=== PATIENT | male | born 1965 | race Caucasian/White ===

== ENCOUNTER 2020-06-17 06:47 | Emergency (ER) | payer SELFPAY ==
[~2020-06-17] VITALS: Ht 177.8 cm; Wt 127.0 kg
[2020-06-17] MEDS ORDERED: CLIN300 PO (07:04)
== END 2020-06-17 07:13 | disposition home or self-care (01) ==
LOC: ER 06:47
DX: K08.89 Other specified disorders of teeth and supporting structures (principal); Z88.0 Allergy status to penicillin; Z91.018 Allergy to other foods
CPT/HCPCS: 99282

== ENCOUNTER 2021-02-25 22:58 | Emergency (ER) | payer OTHER ==
[~2021-02-25] VITALS: Ht 177.8 cm; Wt 127.0 kg
[~2021-02-25 22:58] MED LIST: CLIN300 PO
[2021-02-26 01:09] LABS: BASOPHILS ABSOLUTE AUTO 0.05 K/mm3 (0.00-0.23); BASOPHILS PERCENT AUTO 0 % (0-2); EOSINOPHILS ABSOLUTE AUTO 0.23 K/mm3 (0.00-0.68); EOSINOPHILS PERCENT AUTO 2 % (0-6); Hematocrit 47.4 % (37.0-53.0); Hemoglobin 16.2 g/dL (13.5-17.5); IMMATURE GRAN ABSOLUTE AUTO 0.13 K/mm3 (0.00-0.10); IMMATURE GRAN PERCENT AUTO 1 % (0-1); LYMPHOCYTES ABSOLUTE AUTO 2.24 K/mm3 (0.84-5.20); LYMPHOCYTES PERCENT AUTO 17 % (21-46); MONOCYTES ABSOLUTE AUTO 1.08 K/mm3 (0.16-1.47); MONOCYTES PERCENT AUTO 8 % (4-13); Mean Corpuscular HGB 29.4 pg (26.0-34.0); Mean Corpuscular HGB Conc 34.2 g/dL (31.5-36.5); Mean Corpuscular Volume 86 fL (80-100); Mean Platelet Volume 9.6 fL (9.1-12.4); NEUTROPHILS PERCENT AUTO 72 % (41-73); Platelet Count 233 K/mm3 (150-400); RDW Coefficient Variation 13.2 % (11.7-14.2); RDW Standard Deviation 41.4 fL (35.1-46.3); Red Blood Cell Count 5.51 M/mm3 (4.30-5.90); White Blood Cell Count 13.43 K/mm3 (4.00-11.30)
[2021-02-26 01:29] LABS: Alanine Aminotransfer (ALT/SGP 38 U/L (12-78); Albumin, Blood 3.8 g/dL (3.4-5.0); Alk Phos 79 U/L (50-136); Anion Gap 7 mmol/L (6-16); Aspartate Aminotrans (AST/SGOT 12 U/L (12-37); Bilirubin, Total 0.4 mg/dL (0.1-1.0); Blood Urea Nitrogen 14 mg/dL (8-24); Bun/Creatinine Ratio 15.7 (12.0-20.0); CO2, Blood 27 mmol/L (21-32); Calcium, Blood 9.1 mg/dL (8.5-10.1); Chloride, Blood 105 mmol/L (98-108); Creatinine, Blood 0.89 mg/dL (0.60-1.20); Glomerular Filtration Rate >60 (60-); Glucose, Blood 111 mg/dL (70-99); Potassium, Blood 3.6 mmol/L (3.5-5.5); Sodium, Blood 139 mmol/L (136-145); Total Protein, Blood 7.8 g/dL (6.4-8.2)
[2021-02-26 02:05] LABS: Source, Urine Clean Catch
[2021-02-26 02:09] LABS: Appearance, Urine Clear (Clear); Bilirubin, Urine Neg (Neg); Blood, Urine Neg (Neg); Color, Urine Yellow (P-Yellow); Glucose Qualitative, Urine Neg (Neg); Ketones, Urine Neg (Neg); Leukocyte Esterase, Urine Neg (Neg); Nitrite, Urine Neg (Neg); Protein, Urine Neg (Neg); Specific Gravity, Urine 1.025 (1.003-1.022); Urobilinogen, Urine NORM (Normal)
[2021-02-26] MEDS ORDERED: LEVE500 PO (03:40)
== END 2021-02-26 04:18 | disposition home or self-care (01) ==
LOC: ER 22:58
PROVIDERS: Physician Assistant
DX: G40.909 Epilepsy, unspecified, not intractable, without status epilepticus (principal); F17.210 Nicotine dependence, cigarettes, uncomplicated
CPT/HCPCS: 36415; 70450; 80053; 81003; 85025; 93005; 93010; 96365; 99284-25; J1953; L0160

== ENCOUNTER 2022-03-05 12:49 | Emergency (ER) | payer OTHER ==
[~2022-03-05] VITALS: Ht 180.3 cm; Wt 129.3 kg
[~2022-03-05 12:49] MED LIST changes: +LEVE500 PO
[2022-03-05] MEDS ORDERED: AMOCLA875 PO (13:55)
== END 2022-03-05 13:56 | disposition home or self-care (01) ==
LOC: ER 12:49
DX: K04.7 Periapical abscess without sinus (principal); F17.210 Nicotine dependence, cigarettes, uncomplicated; Z88.0 Allergy status to penicillin
CPT/HCPCS: 99282

== ENCOUNTER 2022-04-24 03:01 | Emergency (ER) | payer OTHER ==
[~2022-04-24] VITALS: Ht 180.3 cm; Wt 127.0 kg
[~2022-04-24 03:01] MED LIST changes: +AMOCLA875 PO
[2022-04-24 06:32] LABS: BASOPHILS ABSOLUTE AUTO 0.03 K/mm3 (0.00-0.23); BASOPHILS PERCENT AUTO 0 % (0-2); EOSINOPHILS ABSOLUTE AUTO 0.21 K/mm3 (0.00-0.68); EOSINOPHILS PERCENT AUTO 2 % (0-6); Hematocrit 46.2 % (37.0-53.0); Hemoglobin 15.6 g/dL (13.5-17.5); IMMATURE GRAN ABSOLUTE AUTO 0.05 K/mm3 (0.00-0.10); IMMATURE GRAN PERCENT AUTO 1 % (0-1); LYMPHOCYTES ABSOLUTE AUTO 1.78 K/mm3 (0.84-5.20); LYMPHOCYTES PERCENT AUTO 20 % (21-46); MONOCYTES ABSOLUTE AUTO 0.93 K/mm3 (0.16-1.47); MONOCYTES PERCENT AUTO 11 % (4-13); Mean Corpuscular HGB 29.1 pg (26.0-34.0); Mean Corpuscular HGB Conc 33.8 g/dL (31.5-36.5); Mean Corpuscular Volume 86 fL (80-100); Mean Platelet Volume 9.5 fL (9.1-12.4); NEUTROPHILS ABSOLUTE AUTO 5.89 K/mm3 (1.96-9.15); NEUTROPHILS PERCENT AUTO 66 % (41-73); Platelet Count 217 K/mm3 (150-400); RDW Coefficient Variation 13.2 % (11.7-14.2); RDW Standard Deviation 40.8 fL (35.1-46.3); Red Blood Cell Count 5.37 M/mm3 (4.30-5.90); White Blood Cell Count 8.89 K/mm3 (4.00-11.30)
[2022-04-24 06:46] LABS: Bun/Creatinine Ratio 13.8 (12.0-20.0); Calcium, Blood 8.6 mg/dL (8.5-10.1); Creatinine, Blood 0.8 mg/dL (0.60-1.20); Potassium, Blood 3.9 mmol/L (3.5-5.5)
[2022-04-24] MEDS ORDERED: SULTRIDS PO (07:46)
== END 2022-04-24 09:05 | disposition home or self-care (01) ==
LOC: ER 03:01
PROVIDERS: Student in an Organized Health Care Education/Training Program
DX: L03.211 Cellulitis of face (principal); R59.0 Localized enlarged lymph nodes; F17.210 Nicotine dependence, cigarettes, uncomplicated; Z88.0 Allergy status to penicillin; Z91.018 Allergy to other foods; Z79.899 Other long term (current) drug therapy
CPT/HCPCS: 36415; 70487; 80048; 85025; Q9967

== ENCOUNTER 2024-07-17 05:22 | Emergency (ER) | payer OTHER ==
[~2024-07-17] VITALS: Ht 180.3 cm; Wt 117.9 kg
[~2024-07-17 05:22] MED LIST changes: +SULTRIDS PO
[2024-07-17] MEDS ORDERED: Ketorolac Tromethamine 30mg Vial IM ONE (07:20)
[2024-07-17] MEDS ORDERED: Clindamycin HCl 150 MG Cap PO ONE (07:20)
[2024-07-17] MEDS ORDERED: CLIN300 PO (07:21)
[2024-07-17 07:36] VITALS: BP 180/103
== END 2024-07-17 07:38 | disposition home or self-care (01) ==
LOC: ER 05:22
DX: K05.30 Chronic periodontitis, unspecified (principal); F17.210 Nicotine dependence, cigarettes, uncomplicated; Z91.018 Allergy to other foods; Z88.0 Allergy status to penicillin
CPT/HCPCS: 96372; 99282-25; A9270; J1885

== ENCOUNTER 2024-10-19 10:30 | Emergency (ER) | payer OTHER ==
[~2024-10-19] VITALS: Ht 180.3 cm; Wt 113.4 kg
[2024-10-19 10:59] VITALS: BP 141/90
[2024-10-19] MEDS ORDERED: POLYTRIM EYE DR10 M1 RIGHTEYE ×2 (11:05→11:06)
== END 2024-10-19 11:11 | disposition home or self-care (01) ==
LOC: ER 10:30
DX: H10.9 Unspecified conjunctivitis (principal); F17.210 Nicotine dependence, cigarettes, uncomplicated; Z88.0 Allergy status to penicillin; Z91.018 Allergy to other foods
CPT/HCPCS: 99283